=== PATIENT | male | born 1995 | race Caucasian/White ===

== ENCOUNTER 2020-11-03 18:43 | Emergency (ER) | payer BC ==
[~2020-11-03] VITALS: Ht 198.1 cm; Wt 167.8 kg
[~2020-11-03 18:43] MED LIST: PERCOCET 5-3251 EACH PO
[2020-11-03 20:24] LABS: HEMOGLOBIN 15.6 gm/dl (14.0-17.5); RED BLOOD COUNT 5.34 M/UL (4.20-5.50); WHITE BLOOD COUNT 6.4 K/UL (4.5-11.0)
[2020-11-03 20:44] LABS: BUN/CREATININE RATIO 11 (0-10)
== END 2020-11-03 23:00 | disposition home or self-care (01) ==
LOC: ER1 18:43
PROVIDERS: Physician Assistant
DX: Z23 Encounter for immunization (principal); U07.1 COVID-19; Z87.891 Personal history of nicotine dependence
CPT/HCPCS: 71045; 80053; 85025; 99285; M0243